=== PATIENT | female | born 1990 | race Caucasian/White ===

== ENCOUNTER 2023-05-03 06:49 | Inpatient (IN) | payer OTHER, SELFPAY ==
[2023-05-03] VITALS (7 sets, daily range): BP systolic 119–126; BP diastolic 67–79; PULSE 88–102; TEMP 36.6–36.8; O2SAT 97; BMI 36.0
[2023-05-03 08:51] LABS: Basophils Absolute Auto 0.02 K/uL (0.00-0.30); Basophils Percent Auto 0.2 % (0.0-3.0); Eosinophils Absolute Auto 0.06 K/uL (0.00-0.50); Eosinophils Percent Auto 0.7 % (0.0-7.0); Hematocrit 32.8 % (33.0-51.0); Hemoglobin* 10.5 gm/dL (12.0-16.0); Immature Granulocytes Abs Auto 0.03 K/uL (0.00-0.30); Immature Granulocytes Pct Auto 0.3 %; Lymphocytes Percent Auto 18.1 % (20-44); Mean Corpuscular HGB Conc 32 gm/dL (32-36); Mean Corpuscular Hemoglobin 27 pg (26-34); Mean Corpuscular Volume 84 fL (80-100); Monocytes Percent Auto 8.9 % (0.0-11.0); Neutrophils Absolute Auto 6.23 K/uL (1.7-7.0); Neutrophils Percent Auto 71.8 % (42.0-72.0); Platelet Count* 170 K/uL (140-440); RDW Coefficient of Variation % 13.9 % (11.5-15.5); White Blood Count* 8.68 K/uL (4.50-11.00)
--- NOTE | 2023-05-03 08:52 | PM.OBHPLI ---
OB - H&P: HPI Labor/Induction History of Present Illness Time Seen by Provider: 08:53 Date Seen: 05/03/23 Chief Complaint: The patient is a 32 year old 5 para 1122 at 39+3 weeks gestation by LMP c/w 7 wk US, who presents for elective IOL. Chief complaint: Maternity : 5 Para: 11 Indications for induction: other (Elective) Narrative: Prudence Dickson is a 32 year old female at 39w3d by LMP c/w 7 wk US who presents for IOL. has been complicated by history of delivery at 35w with her first and excessive weight gain, about 75 lbs. GCT was 87. Growth US at 36 weeks showed 65th percentile and patient has been measuring in accordance with dates. Patient reports feeling well this AM. Some cramping on and off over the past week, no regular contractions. Normal movement. History of Present Dating criteria: based on LMP care: good care Ultrasounds: normal 1st trimester US and normal mid trimester US Labs Blood type: O (+) positive Rubella: immune RPR/VDLR: nonreactive GBS status: negative HBsAG: negative Review of Systems Status of ROS: Reports: 10 or more systems reviewed and unremarkable except as noted in History and below Meds Home Medications and Allergies Home Medications Medication Instructions Recorded Confirmed Type citalopram 20 mg tablet 20 mg PO DAILY 05/03/23 05/03/23 History Allergies Allergy/AdvReac Type Severity Reaction Status Date / Time No Known Drug Allergies Allergy Verified 05/03/23 07:38 OB - H&P: Exam Physical Exam: Vital signs: Temp Pulse BP Pulse Ox 98.1 F 102 H 126/77 97 05/03/23 07:35 05/03/23 07:36 05/03/23 07:36 05/03/23 07:35 Narrative: General appearance: Well-appearing adult female. Alert, oriented and appropriate. Sitting up in hospital bed. HEENT: EOMI, no conjunctival injection or discharge. MMM. Neck: Supple. CV: RRR, no rubs, murmurs or extra heart sounds. Pulm: CTAB, no wheezes, rales or rhonchi. Abdomen: Gravid. MSK: Moving all extremities. Ext: Warm and well-perfused. Trace LE edema. Skin: No rashes appreciated over exposed skin. Neuro: Grossly normal strength and sensation. No focal deficits. Psych: Normal affect. Detailed Labor and Delivery Exam: Dilation (cm): 2 Effacement (%): 60 Cervix position: mid Consistency: soft Comments: Occasional ctx. Fetus (Single): Amniotic Membrane Status: intact Heart Rate Baseline: 125 Monitor Accelerations: Present Monitor Decelerations: None Detention Variability: Moderate (6-25) OB - Problem Based A/P Additional Plan (1) Term : Problem details: Complicated by hx of delivery at 35w with first and excessive weight gain ~75 lbs. Normal GCT. EFW 65th percentile at 36w. Status: Acute Plan: - Elective IOL. Cook catheter placed this AM. Plan initiate low dose pitocin at 1200. - GBS negative - Anticipate vaginal delivery
[2023-05-03 09:06] LABS: Slide Review Reflex No
[2023-05-03] MEDS: LACTATED RINGERS 1000 ML 1,000 ML 125 ML IV ×2 (11:07→19:14)
[2023-05-03] MEDS: OXYTOCIN 30 unit/500 ML in NS 30 UNIT/500 ML BAG IVPB (11:08)
[2023-05-04] VITALS (18 sets, daily range): BP systolic 127–207; BP diastolic 66–97; PULSE 68–122; RESP 16–18; TEMP 36.4–36.8; O2SAT 96–100
--- NOTE | 2023-05-04 02:29 | PM.OBPNL ---
Subjective Time Seen by Provider: 02:29 Date Seen: 05/04/23 Narrative: Patient with slow progress throughout the day on pitocin. S/p cook catheter, fell out around 1030. Came in to assess d/t concern that patient may be nearing delivery. Last SVE /-2. Pit was halved d/t tachysystolie and is currently at 6. Patient reports mild discomfort with contractions. Objective Vital Signs: Last Vital Signs Temp 98 F 05/04/23 00:52 Pulse 73 05/04/23 00:55 BP 132/71 05/04/23 00:55 Pulse Ox 97 05/03/23 07:35 Pelvic Exam Dilation (cm): 5.5 Effacement (%): 80 Station: -1 Contractions Contraction Frequency: q2-3 Contraction pattern: Regular Contraction intensity: Moderate Pitocin Rate (mU/min): 6 Assessment Heart Rate Baseline: 125 Monitor Accelerations: Present Monitor Decelerations: None Plan Plan: - AROM for clear fluid - Continue pitocin per protocol - Patient is planning natural delivery, but may have epidural upon request - FHT category 1 - Anticipate vaginal delivery
[2023-05-04] MEDS: LACTATED RINGERS 1000 ML 1,000 ML 125 ML IV (03:54)
--- NOTE | 2023-05-04 05:16 | W.PM.OBVAGDE ---
OB Procedure Vag Delivery Mother Details Mother Details: The patient is a 32 year-old, 5, Para 3, admitted on 05/03/23 at 39+3 Days gestation for elective IOL. : 5 Para: 11 Weeks Gestation: 39.4 Admission Date: 05/03/23 Additional Details Amniotic Membrane Status: AROM Amniotic Membrane Rupture Date: 05/04/23 Amniotic Membrane Rupture Time: 02:23 Amniotic Membrane Fluid Description: Clear Analgesia/Anesthesia Type: Nitrous Oxide Waterbirth: No Pitcoin: Yes Intrapartal Events: Labor Augmentation and Labor Induction Induction Method: Intracervical balloon catheter Delivery augmentation: rupture of membranes and pitocin Labor Onset: 02:41 Complete: 04:13 Pushin:14 Heart: heart tones during second stage were category II with variable decelerations with pushing, recovered with repositioning. Delivery Details Delivery Date: 05/04/23 Delivery Time: 04:32 Route of delivery: Gender: Female Infant Viability: Alive; Heart Rate Present Position at Delivery: OA Delivery Details: Patient admitted on 05/03/23 a.m. for elective induction of labor. Cervix was 2/60/-3. Cook catheter placed for cervical ripening. Fell out 1030. Pitocin was initiated. Patient made slow progress over the course of the day. AROM for clear fluid on 05/04 at 0223, at which time cervix was noted to be 5.5/80/-1. Contractions intensified rapidly and patient requested nitrous oxide for pain management. Fun to be complete at 4:13 a.m. Delivered over intact perineum via spontaneous vaginal delivery at 0432. Infant was placed on maternal abdomen.? Cord was clamped and cut after a 30-60 second delay. Nose and mouth were bulb suctioned.? Infant weight pending. Second degree perineal laceration was repaired with 3-0 Vicryl in the usual fashion. EBL was 200 mL. 1 Minute Interval Total Score: 8 5 Minute Interval Total Score: 9 Additional Details Shoulder Dystocia: No Placental Delivery Description: Spontaneous Delivery repair: Vicryl Procedure Done: Global Blood Loss: 200 Laceration: Perineal - 2nd Degree Episiotomy Description: None Blood Loss Measurement Type: EBL Bakri Used: No Sponge/Need Count Correct: Yes Cord Vessel Description: 3 Vessels Event Summary Status: Mother and infant were stable after delivery. Disposition: floor
[2023-05-04] MEDS: DOCUSATE SODIUM 100 MG CAPSULE PO (10:34)
[2023-05-04] MEDS: IBUPROFEN 600 MG TABLET PO ×2 (10:34→20:47)
--- NOTE | 2023-05-04 11:10 | P.OBPN_ITS ---
OB - PN:Subj Subjective Time Seen by Provider: 11:10 Date Seen: 05/04/23 Interval history: pt had at 0432 this morning. Nursing notified me pt is having hip pain and having trouble walking so I went to see her. pt tells me she has had pubic bone pain and bilateral hip pain throughout . This past month was off work at [employer] due to the hip pain. Pt says hip pain/pubic bone pain is not new but is increased since delivery. No numbness or tingling. Lochia 'normal' per pt. Just got first dose Ibuprofen she says. Is currently holding baby. OB - PN: Obj Exam Physical Exam: Vital signs: Temp Pulse Resp BP Pulse Ox O2 Del Method 97.9 F 77 16 143/86 H 97 Room Air 05/04/23 10:33 05/04/23 10:33 05/04/23 10:33 05/04/23 10:33 05/04/23 10:33 05/04/23 10:33 Narrative: Gen pleasant, nad, sitting holding baby MS: pubic symphysis with local ttp. She also points to anterior bilateral hips in groin area when describing. OB - PN: A/P Delivery Assessment and Plan (1) Term : Problem details: Complicated by hx of delivery at 35w with first and excessive weight gain ~75 lbs. Normal GCT. EFW 65th percentile at 36w. Status: Acute (2) Hip pain: Status: Acute Assessment and Plan: Start got first dose ibuprofen, can use ice. Will see if PT can see her as well. (3) Diastasis of symphysis pubis during delivery: Status: Acute Assessment and Plan: Start got first dose ibuprofen, can use ice. Will see if PT can see her as well.
[2023-05-04] MEDS: ACETAMINOPHEN 500 MG TABLET 1000 MG PO ×2 (13:21→23:53)
[2023-05-04 21:21] LABS: Platelet Count* 175 K/uL (140-440)
[2023-05-04 21:35] LABS: Alanine Aminotransferase* 21 U/L (4-35); Aspartate Amino Transferase* 40 U/L (12-35); Creatinine* 0.5 mg/dL (0.5-1.5); Est. Creatinine Clearance* 173.06; Estimated Glomerular Filt Rate 127 ml/min
[2023-05-04] MEDS: LABETALOL HCL 100 MG TABLET PO (21:44)
--- NOTE | 2023-05-04 23:09 | PM.OBPNVD1 ---
OB - PN:Subj Subjective Date Seen: 05/04/23 Interval history: pt had at 0432 this morning. Nursing notified me pt is having hip pain and having trouble walking so I went to see her. pt tells me she has had pubic bone pain and bilateral hip pain throughout . This past month was off work at [employer] due to the hip pain. Pt says hip pain/pubic bone pain is not new but is increased since delivery. No numbness or tingling. Lochia 'normal' per pt. Just got first dose Ibuprofen she says. Is currently holding baby. OB - PN: Obj Exam Physical Exam: Vital signs: Temp Pulse Resp BP Pulse Ox O2 Del Method 98.0 F 96 18 147/80 H 96 Room Air 05/04/23 21:02 05/04/23 21:02 05/04/23 21:02 05/04/23 21:02 05/04/23 21:02 05/04/23 21:02 OB - PN: Obj Data Labs Labs: Laboratory Results - last 24 hr 05/04/23 21:15 Plt Count 175 Creatinine 0.5 Estimated Creat Clear 173.06 Estimated GFR 127 AST 40 H ALT 21 OB - PN: A/P Delivery Assessment and Plan (1) Term : Problem details: Complicated by hx of delivery at 35w with first and excessive weight gain ~75 lbs. Normal GCT. EFW 65th percentile at 36w. Status: Acute (2) Hip pain: Status: Acute (3) Diastasis of symphysis pubis during delivery: Status: Acute
[2023-05-05] VITALS (7 sets, daily range): BP systolic 107–133; BP diastolic 67–88; PULSE 67–92; RESP 16–18; TEMP 36.6–36.7; O2SAT 94–98
[2023-05-05] MEDS: IBUPROFEN 600 MG TABLET PO ×3 (03:04→16:43)
[2023-05-05 07:38] LABS: Hemoglobin* 10.2 gm/dL (12.0-16.0)
[2023-05-05 08:13] LABS: Platelet Count* 195 K/uL (140-440)
[2023-05-05 08:17] LABS: Alanine Aminotransferase* 19 U/L (4-35); Aspartate Amino Transferase* 37 U/L (12-35); Creatinine* 0.6 mg/dL (0.5-1.5); Est. Creatinine Clearance* 144.21; Estimated Glomerular Filt Rate 121 ml/min
--- NOTE | 2023-05-05 09:00 | PM.OBPNVD1 ---
OB - PN:Subj Subjective Time Seen by Provider: 08:40 Date Seen: 05/05/23 Interval history: Last night was noted to have high BP >140/90 range x 2 and started on labetalol 100mg last night. RN reported 2+LE edema. Pt reports started . Preeclamptic labs as below. No headache or vision changes. pt reports hip pain does feel better today. She saw PT yesterday and I am told PT plans to come see pt today and recommended outpatient PT as well. She does not have any new concerns today. She had been hoping to go home today feeding status: exclusively OB - PN: Obj Exam Physical Exam: Vital signs: Temp Pulse Resp BP Pulse Ox O2 Del Method 97.9 F 80 18 133/88 97 Room Air 05/05/23 03:31 05/05/23 03:31 05/05/23 03:31 05/05/23 03:31 05/05/23 03:31 05/05/23 03:31 Constitutional: Constitutional: no acute distress and cooperative Routine HEENT Exam: Head: Present normal inspection Eye: Present normal appearance ENT: Present normal exam Routine Abdominal Exam: Fundus: Present firm Routine Extremities Exam: Extremities: Present pedal edema OB - PN: Obj Data Labs Labs: Laboratory Results - last 24 hr 05/04/23 05/05/23 05/05/23 21:15 07:18 07:20 Hgb 10.2 L Plt Count 175 195 Creatinine 0.5 0.6 Estimated Creat Clear 173.06 144.21 Estimated GFR 127 121 AST 40 H 37 H ALT 21 19 OB - PN: A/P Delivery Assessment and Plan (1) Term : Problem details: Complicated by hx of delivery at 35w with first and excessive weight gain ~75 lbs. Normal GCT. EFW 65th percentile at 36w. Status: Acute (2) Hip pain: Status: Acute Assessment and Plan: PT (3) Diastasis of symphysis pubis during delivery: Status: Acute Assessment and Plan: PT (4) hypertension: Status: Acute Plan Started on labetalol bid last night, bp still above optimal goal < 130/80. Will increase to tid dosing. Discussed importance good BP control at least 12-24 hours prior to discharge and then close outpatient followup. Will likely need stay until tomorrow but they would prefer to go home today. We will see how bp's go all day.
[2023-05-05] MEDS: LABETALOL HCL 100 MG TABLET PO ×4 (09:01→20:48)
[2023-05-05] MEDS: DOCUSATE SODIUM 100 MG CAPSULE PO (09:01)
[2023-05-05] MEDS: ACETAMINOPHEN 500 MG TABLET 1000 MG PO ×2 (13:11→20:47)
[2023-05-06] MEDS: ACETAMINOPHEN 500 MG TABLET 1000 MG PO ×2 (02:38→08:52)
[2023-05-06 05:30] VITALS: BP 137/83
[2023-05-06] MEDS: IBUPROFEN 600 MG TABLET PO (06:04)
[2023-05-06 08:45] VITALS: BP 145/77; PULSE 76; RESP 16; TEMP 36.7; O2SAT 98
[2023-05-06] MEDS: LABETALOL HCL 100 MG TABLET PO (08:52)
--- NOTE | 2023-05-07 13:41 | P.DS_ITS ---
DS: Providers Provider Time Seen by Provider: 07:30 Date Seen: 05/06/23 Date of admission: 05/03/23 06:49 Primary care physician: Malorie Corral MD Admitting Clinician: Malorie Corral MD Consults: 05/04/23 11:19 Consult to Physical Therapy [CONS] Routine Comment: Reason(s) for PT Consult:: Evaluate and Treat Any Restrictions?:: No Restrictions Attending Physician on discharge: Malorie Corral MD Date of Discharge: 05/06/23 DS: Diagnosis Discharge Diagnosis (1) Term : Status: Acute Problem details: Complicated by hx of delivery at 35w with first and excessive weight gain ~75 lbs. Normal GCT. EFW 65th percentile at 36w. Uncomplicated . 2nd degree perineal laceration repair. (2) hypertension: Status: Acute Problem details: Developed non-severe range blood pressures after delivery. Very mild transaminitis, otherwise labs WNL. BP controlled at the time of discharge with oral labetalol 100 mg TID. (3) Hip pain: Status: Acute Problem details: Pelvic pain prior to delivery necessitating leave from work. Moderately severe pelvic and hip pain on PPD #1. Evaluated by physical therapy, recommended outpatient PT for SI joint dysfunction. Exam Narrative: Exam Narrative: General appearance: Well-appearing adult female. Alert, oriented and appropriate. Sitting up in hospital bed. HEENT: EOMI, no conjunctival injection or discharge. MMM. Neck: Supple. CV: RRR, no rubs, murmurs or extra heart sounds. Pulm: CTAB, no wheezes, rales or rhonchi. Abdomen: Soft, non-tender. Fundus palpated 2 cm below the umbilicus. MSK: Moving all extremities. Ext: Warm and well-perfused. 1+ pitting edema of ankles, 2+ of dorsal feel bilaterally. Skin: No rashes appreciated over exposed skin. Neuro: Grossly normal strength and sensation. No focal deficits. Psych: Normal affect. OB - DS: Summary Hospital Course Hospital Course: The patient is a 32 year old G 5 P 1122 at 39+3 weeks gestation that was admitted to the [facility] on 05/03/23 for elective IOL. She had an uncomplicated vaginal delivery. She delivered a viable female . She is breast feeding. developed non-severe range hypertension. Controlled with oral labetalol at the time of discharge. Peripartum Data delivery method: Vaginal Laceration description: Perineal - 2nd Degree Episiotomy description: None complications: pelvic infection and other (hypertension) Infant Gender: Female Discharge Plan: Home Status at Discharge Functional status at discharge: independent ambulation Overall status at discharge: patient is back to baseline Time Spent with Patient Time attestation: Total time spent providing and/or coordinating discharge services: Discharge Plan Discharge Disposition: Home, Self-Care Date of Admission: 05/03/23 06:49 Attending Provider on Discharge: Malorie Corral Primary Care Provider: Malorie Corral I Condition: Stable Anticipated Discharge Date/Time: 05/06/23 07:43 Discharge Medications: New acetaminophen 500 mg Tablet 1,000 mg PO Q6H PRNQty: 30 0RF docusate sodium 100 mg Capsule 100 mg PO DAILY Qty: 30 0RF ibuprofen 600 mg Tablet 600 mg PO Q6H PRNQty: 30 0RF labetalol 100 mg Tablet 100 mg PO TID Qty: 90 0RF (DME) Blood Pressure Cuff Misc See Rx Instructions .ROUTE Qty: 1 0RF Rx Instructions: As directed Continued citalopram 20 mg tablet 20 mg PO DAILY Discharge Orders: Discharge Order (Routine); Ordered 05/06/23 Ordered By: Malorie Corral Patient Education: Preeclampsia and Eclampsia After Delivery (GEN), OB Vaginal/Breast Feeding Additional Instructions: Check BP daily and write it down. Bring record to f/u appointment. Activity Level: Activity as Tolerated Discharge Diet: Regular Follow Up Appointments: Malorie Corral MD [Primary Care Provider] - ([facility] 05/08/23 at 9:35 AM for BP check) Forms: [employer] Info Instructions
== END 2023-05-06 13:30 | disposition home or self-care (01) | DRG 807 ==
PROVIDERS: Family Medicine; Admitting Provider Family Medicine; PCP Family Medicine; Visit Provider Family Medicine
DX: O71.6 Obstetric damage to pelvic joints and ligaments (principal); Z37.0 Single live birth; R10.2 Pelvic and perineal pain; M25.552 Pain in left hip; M25.551 Pain in right hip; O14.95 Unspecified pre-eclampsia, complicating the puerperium; O70.1 Second degree perineal laceration during delivery; Z3A.39 39 weeks gestation of pregnancy
CPT/HCPCS: 36415; 82565; 84450; 84460; 85018; 85025; 85049; 86850; 86900; 86901; 97140; 97161; A9270; C1726; J7120